=== PATIENT | female | born 1985 | race Caucasian/White ===

== ENCOUNTER 2017-04-06 04:01 | Inpatient (IN) ==
[2017-04-06 05:12] LABS: Apearance,Urine CLEAR (Clear); Bacteria,Urine Occasional /HPF (Few); Bilirubin,Urine Negative (Negative); Blood, Urine Moderate mg/dL (Negative); Glucose,Urine (UA) Negative (Negative); Ketones,Urine Negative (Negative); Mucus,Urine Occasional /LPF (Occasional); Nitrite,Urine Negative (Negative); Protein,Urine Negative; RBC,Urine 1 /HPF (0-4); Squamous Epithelial Cell,Urine Occasional /HPF (0-10); Urine Color Yellow (Yellow); Urine Specific Gravity 1.013 (1.001-1.035); Urine Urobilinogen < 2.0 EU/DL (0.2-1.0); WBC,Urine 2 /HPF (0-6)
[2017-04-06] MEDS ORDERED: ONDANSETRON 4 MG/2 ML VIAL IV PRN (05:12)
[2017-04-06] MEDS ORDERED: BUTORPHANOL 1 MG/ML VIAL IV PRN (05:12)
[2017-04-06] MEDS ORDERED: BUTORPHANOL 1 MG/ML VIAL ONE (05:14)
[2017-04-06] MEDS ORDERED: ONDANSETRON 4 MG/2 ML VIAL ONE (05:14)
[2017-04-06] MEDS ORDERED: LACTATED RINGERS 1,000 ML IV ONE (05:29)
[2017-04-06] MEDS ORDERED: ePHEDrine 50 MG/ML AMP IV PRN (05:44)
[2017-04-06] MEDS ORDERED: diphenhydrAMINE 50 MG/1 ML VIAL IV PRN ×2 (05:44)
[2017-04-06] MEDS ORDERED: hydrOXYzine HCL 25 MG/1 ML VIAL IM PRN (05:44)
[2017-04-06] MEDS ORDERED: CITRIC ACID/SODIUM CITRATE 30 ML UDCUP PO ONE (05:45)
[2017-04-06] MEDS ORDERED: FAMOTIDINE 20 MG/2 ML VIAL IV ONE (05:45)
[2017-04-06] MEDS ORDERED: fentaNYL 2 MCG/ROPIV 0.2% EPID 150 ML EPIDURAL SCH (06:00)
[2017-04-06] MEDS ORDERED: OXYTOCIN/LR 20 UNIT/1,000 ML BAG IV SCH (06:00)
[2017-04-06] MEDS ORDERED: AMPICILLIN INJ 2,000 MG in SODIUM CHLORIDE 0.9% 100 ML IV ONE (06:04)
[2017-04-06 06:27] LABS: Basophils # 0.1 10*3/uL (0.0-0.2); Basophils % 0.3 % (0.0-0.8); Eosinophils % 0.1 % (0.00-10.9); Hematocrit 28.7 VOL% (35.7-47.0); Hemoglobin 8.8 GM/DL (12.0-16.0); Immature Granulocytes % 1.3 %; Immature Granulocytes Absolute 0.23 #; Lymphocytes # 1.1 10*3/uL (1.4-4.0); Lymphocytes % 6.5 % (21.3-54.2); Mean Corpuscular HGB Conc 30.7 GM/DL (32-36); Mean Corpuscular Hemoglobin 24 PG (27-34); Mean Corpuscular Volume 77.6 FL (87-102); Mean Platelet Volume 11.7 FL (9.6-12.0); Monocytes # 0.6 10*3/uL (0.11-0.8); Monocytes % 3.7 % (1.7-12.7); Neutrophils # 15.2 10*3/uL (1.4-7.4); Neutrophils % 88.1 % (38.7-73.9); Platelet Count 233 T/CUMM (130-400); Red Cell Distribution Width 16.4 % (9.3-17.3); White Blood Count 17.3 T/CUMM (4-12)
[2017-04-06] MEDS: LACTATED RINGERS 1,000 ML IV SCH ×2 (06:32→09:14)
[2017-04-06 08:09] LABS: Apearance,Urine CLEAR (Clear); Bacteria,Urine Occasional /HPF (Few); Bilirubin,Urine Negative (Negative); Blood, Urine Negative (Negative); Glucose,Urine (UA) Negative (Negative); Ketones,Urine Negative (Negative); Mucus,Urine Occasional /LPF (Occasional); Nitrite,Urine Negative (Negative); Protein,Urine Negative; RBC,Urine 1 /HPF (0-4); Urine Color Yellow (Yellow); Urine Specific Gravity 1.018 (1.001-1.035); Urine Urobilinogen < 2.0 EU/DL (0.2-1.0); WBC,Urine 1 /HPF (0-6)
[2017-04-06] MEDS ORDERED: LIDOCAINE 1% 50 ML VIAL ONE (13:01)
[2017-04-06] MEDS ORDERED: METHYLERGONOVINE 0.2 MG/1 ML AMP ONE (13:01)
[2017-04-06] MEDS ORDERED: miSOPROStol 200 MCG TABLET ONE (13:01)
[2017-04-06 14:40] LABS: Cord Arterial Blood HCO3 15.7 MMOL/L
[2017-04-06 14:43] LABS: Cord Venous Blood HCO3 17.4 MMOL/L; Cord Venous Blood PCO2 41.6 MMHG; Cord Venous Blood PO2 22.5
[2017-04-06] MEDS ORDERED: BENZOCAINE 20%/MENTHOL 0.5% SPRAY 56 GM CAN TOP PRN (15:51)
[2017-04-06] MEDS ORDERED: WITCH HAZEL PADS 100/JAR TOP PRN (15:51)
[2017-04-06] MEDS ORDERED: BISACODYL 10 MG SUPP RECTAL PRN (15:51)
[2017-04-06] MEDS ORDERED: HYDROCORTISONE 2.5% RECTAL CREAM 30 GM TUBE TOP PRN (15:51)
[2017-04-06] MEDS ORDERED: LANOLIN 50% CREAM 0.3 OZ TUBE TOP PRN (15:51)
[2017-04-06] MEDS ORDERED: oxyCODONE/ACETAMINOPHEN 5-325 MG TABLET PO PRN (15:51)
[2017-04-06] MEDS ORDERED: ACETAMINOPHEN/CODEINE 300-30 MG TABLET PO PRN (15:51)
[2017-04-06] MEDS ORDERED: ACETAMINOPHEN 325 MG TABLET PO PRN (15:51)
[2017-04-06] MEDS ORDERED: RHO(D) IMMUNE GLOBULIN 300 MCG SYRINGE IM ONE (16:15)
[2017-04-06] MEDS ORDERED: MEASLES/MUMPS/RUBELLA VACCINE 0.5 ML VIAL SUBCUT ONE (16:15)
[2017-04-06] MEDS ORDERED: DIPH/TET/ACEL PERT BOOSTER VACCINE 0.5 ML VIAL IM ONE (16:30)
[2017-04-06] MEDS ORDERED: OXYTOCIN/LR 20 UNIT/1,000 ML BAG IV ONE (17:01)
[2017-04-06] MEDS: oxyCODONE/ACETAMINOPHEN 5-325 MG TABLET PO PRN (20:47)
[2017-04-06] MEDS: DOCUSATE SODIUM 100 MG CAPSULE PO SCH (20:47)
[2017-04-07] MEDS: IBUPROFEN 800 MG TABLET PO PRN ×3 (06:06→20:42)
[2017-04-07] MEDS: oxyCODONE/ACETAMINOPHEN 5-325 MG TABLET PO PRN ×2 (07:33→20:43)
[2017-04-07] MEDS: DOCUSATE SODIUM 100 MG CAPSULE PO SCH ×2 (07:34→20:41)
[2017-04-07 08:45] LABS: Basophils # 0.1 10*3/uL (0.0-0.2); Basophils % 0.3 % (0.0-0.8); Eosinophils # 0.1 10*3/uL (0.0-0.87); Eosinophils % 0.3 % (0.00-10.9); Hematocrit 24.5 VOL% (35.7-47.0); Hemoglobin 7.5 GM/DL (12.0-16.0); Immature Granulocytes % 0.8 %; Immature Granulocytes Absolute 0.15 #; Lymphocytes # 1.3 10*3/uL (1.4-4.0); Lymphocytes % 6.9 % (21.3-54.2); Mean Corpuscular HGB Conc 30.6 GM/DL (32-36); Mean Corpuscular Hemoglobin 24 PG (27-34); Mean Platelet Volume 11.6 FL (9.6-12.0); Monocytes # 0.7 10*3/uL (0.11-0.8); Monocytes % 3.9 % (1.7-12.7); Neutrophils # 16.3 10*3/uL (1.4-7.4); Neutrophils % 87.8 % (38.7-73.9); Platelet Count 197 T/CUMM (130-400); Red Blood Count 3.18 MC/CUMM (3.8-5.5); Red Cell Distribution Width 16.9 % (9.3-17.3); White Blood Count 18.6 T/CUMM (4-12)
[2017-04-07] MEDS ORDERED: FERROUS SULFATE 325 MG TABLET PO SCH (09:00)
[2017-04-07] MEDS ORDERED: SODIUM CHLORIDE 0.9% 1,000 ML IV PRN (10:15)
[2017-04-07] MEDS: FERROUS SULFATE 325 MG TABLET PO SCH ×2 (14:35→20:41)
[2017-04-07 16:44] LABS: Hematocrit 26.7 VOL% (35.7-47.0); Hemoglobin 8.3 GM/DL (12.0-16.0)
[2017-04-08 06:46] LABS: Basophils % 0.3 % (0.0-0.8); Eosinophils # 0.2 10*3/uL (0.0-0.87); Eosinophils % 1.3 % (0.00-10.9); Hematocrit 27.4 VOL% (35.7-47.0); Hemoglobin 8.6 GM/DL (12.0-16.0); Immature Granulocytes % 1.3 %; Immature Granulocytes Absolute 0.17 #; Lymphocytes # 2.1 10*3/uL (1.4-4.0); Lymphocytes % 15.8 % (21.3-54.2); Mean Corpuscular HGB Conc 31.4 GM/DL (32-36); Mean Corpuscular Hemoglobin 25 PG (27-34); Mean Platelet Volume 11.6 FL (9.6-12.0); Monocytes # 0.6 10*3/uL (0.11-0.8); Monocytes % 4.5 % (1.7-12.7); NRBC # 0.02 10*3/uL; Neutrophils # 10.4 10*3/uL (1.4-7.4); Neutrophils % 76.8 % (38.7-73.9); Platelet Count 195 T/CUMM (130-400); Red Blood Count 3.47 MC/CUMM (3.8-5.5); Red Cell Distribution Width 17.2 % (9.3-17.3); White Blood Count 13.5 T/CUMM (4-12)
[2017-04-08 07:12] VITALS: BP 121/70
[2017-04-08] MEDS: FERROUS SULFATE 325 MG TABLET PO SCH ×2 (09:05→09:07)
[2017-04-08] MEDS: IBUPROFEN 800 MG TABLET PO PRN (09:07)
[2017-04-08] MEDS: DOCUSATE SODIUM 100 MG CAPSULE PO SCH (09:10)
== END 2017-04-08 12:25 | disposition home or self-care (01) | DRG 775 ==
LOC: N.LDOUT 04:01 → N.LD 04:03 → N.OB 16:57
PROVIDERS: ADMIT Obstetrics & Gynecology; ATTEND Obstetrics & Gynecology